=== PATIENT | female | born 1965 ===

== ENCOUNTER 2022-09-07 05:40 | Day surgery (SDC) | payer OTHER ==
[~2022-09-07] VITALS: Ht 167.6 cm; Wt 77.1 kg
[~2022-09-07 05:40] MED LIST: CANDESARTAN CILE8 MG PO; SIMVASTATIN5 MG PO; SYNTHROID88 MCG PO
[2022-09-07] MEDS ORDERED: MORGIDOX100 MG PO (09:48)
[2022-09-07] MEDS ORDERED: NAPR500T14 PO (09:48)
== END 2022-09-07 13:40 | disposition home or self-care (01) ==
LOC: CIR.AMB 05:40
PROVIDERS: ATTEND Obstetrics & Gynecology
DX: N84.0 Polyp of corpus uteri (principal); D25.0 Submucous leiomyoma of uterus; N95.0 Postmenopausal bleeding; I10 Essential (primary) hypertension; Z20.822 Contact with and (suspected) exposure to COVID-19; Z03.818 Encounter for observation for suspected exposure to other biological agents ruled out